=== PATIENT | female | born 1985 | race Caucasian/White ===

== ENCOUNTER → 2020-07-17 | Outpatient (CLI) | payer SELFPAY ==
--- NOTE | 2020-07-18 17:27 | US ---
US THYROID CLINICAL STATEMENT:34 years Female FULLNESS SENSATION IN THROAT. No prior surgery or medical thyroid therapy. COMPARISON: None TECHNIQUE: Transcutaneous scanning, grayscale and Doppler modes. FINDINGS: Size right thyroid lobe: 4.8 x 1.9 x 1.3 cm Size left thyroid lobe: 5.3 x 1.7 x 1.4 cm Size isthmus: 0.2 cm Estimated total number of nodules greater than or equal to 1 cm: None.. Homogeneous echoes. No dominant solid mass, no distinct cysts, no fluid collections, and no large calcifications. IMPRESSION: 1. Homogeneous echoes in the thyroid gland with no nodules. Surrounding soft tissues are unremarkable. *ACR TI-RADS 2017 Recommendations for imaging follow-up of nodules (baseline study): TR1: No FNA or follow up TR2: No FNA or follow up TR3: FNA if >/= 2.5 cm, follow up if 1.5 - 2.4 cm in 1, 3, and 5 years TR4: FNA if >/= 1.5 cm, follow up if 1.0 - 1.4 cm in 1, 2, 3, and 5 years TR5: FNA if >/= 1.0 cm, follow up if 0.5 - 0.9 cm every year for 5 years ACR TI-RADS recommends that no more than two nodules with the highest ACR TI-RADS total point should be biopsied and no more than four nodules should be followed. These recommendations do not apply to patients with increased risk for thyroid cancer or patients with symptomatic thyroid disease. Electronically signed by: Fortino Coello MD 07/18/2020 5:25 PM CDT
== END ==
LOC: US 08:06
PROVIDERS: ATTEND Family Medicine
DX: R09.89 Other specified symptoms and signs involving the circulatory and respiratory systems (principal); R93.89 Abnormal findings on diagnostic imaging of other specified body structures